=== PATIENT | female | born 1980 | race Caucasian/White ===

== ENCOUNTER → 2020-07-17 | Day surgery (SDC) | payer OTHER ==
[~2020-07-17] MED LIST: AJOVY AUTO225 MG/1.5 SQ; BOTOX INJECTION; CREON PO; DIAZEPAM10 MG PO; GABAPENTIN800 MG PO; PHENERGAN PO; SUCRALFATE PO; SUMATRIPTAN5 MG; ZOFRAN ODT 4 MG4 MG PO; [UNRECOGNIZED DRUG - OTHER]
[2020-07-17 09:40] LABS: HEMOGLOBIN 15.9 gm/dl (12.3-15.3); RED BLOOD COUNT 5.17 M/UL (4.00-5.10); WHITE BLOOD COUNT 9.9 K/UL (4.5-11.0)
== END | disposition home or self-care (01) ==
LOC: OR 08:00
PROVIDERS: Obstetrics & Gynecology
DX: N30.10 Interstitial cystitis (chronic) without hematuria (principal); M62.89 Other specified disorders of muscle; G43.909 Migraine, unspecified, not intractable, without status migrainosus; G62.9 Polyneuropathy, unspecified; K21.9 Gastro-esophageal reflux disease without esophagitis; J44.9 Chronic obstructive pulmonary disease, unspecified; F17.210 Nicotine dependence, cigarettes, uncomplicated; Z91.040 Latex allergy status; Z88.0 Allergy status to penicillin; Z88.2 Allergy status to sulfonamides; Z88.5 Allergy status to narcotic agent; Z79.899 Other long term (current) drug therapy
CPT/HCPCS: 85025; J1100; J1170; J1580; J1644; J2001; J2250; J2405; J2704; J2765; J3010; J3301; J7120

== ENCOUNTER → 2021-04-13 | Outpatient (CLI) | payer OTHER | LOC: EXRD 04-09 15:15 → US 13:09 | DX: R10.9 Unspecified abdominal pain (principal) ==

== ENCOUNTER → 2021-05-08 | Day surgery (SDC) | payer OTHER ==
[~2021-05-08] MED LIST changes: +AJOVY225 MG/1.5 SQ; +AMITRIPTYLINE H25 MG PO; +CREON DR 12,001 EACH PO; +ENDOCET 5-3251 EACH PO; +EPIPEN 2-P0.3 MG/0.3 INJ; +FLOVENT 44 MCG7.9 GM INH; +KLONOPIN1 MG PO; +LIDOCAINE PAIN1 EACH TP; +LIORESAL TAB 1010 MG PO; +LIPITOR40 MG PO; +MACROBID 100 M100 MG PO; +NEURONTIN800 MG PO; +PROAIR DIGIHAL90 MCG INH; +PROMETHEGAN12.5 MG PR; +SUMATRIPTA4 MG/0.5 M SQ; +VALIUM 10 MG TA10 MG PV; +VYVANSE40 MG PO
[2021-05-08 14:13] LABS: HEMOGLOBIN 13.2 gm/dl (12.3-15.3); RED BLOOD COUNT 4.46 M/UL (4.00-5.10); WHITE BLOOD COUNT 9.5 K/UL (4.5-11.0)
== END | disposition home or self-care (01) ==
LOC: OR 09:30
PROVIDERS: Obstetrics & Gynecology
DX: N30.10 Interstitial cystitis (chronic) without hematuria (principal); F17.200 Nicotine dependence, unspecified, uncomplicated; Z88.2 Allergy status to sulfonamides; Z88.1 Allergy status to other antibiotic agents; Z91.040 Latex allergy status; Z90.710 Acquired absence of both cervix and uterus; Z20.822 Contact with and (suspected) exposure to COVID-19
CPT/HCPCS: 85025; 93005; J1100; J1580; J1644; J1885; J2001; J2250; J2370; J2405; J2704; J7030; J7120; U0002